=== PATIENT | male | born 1960 ===

== ENCOUNTER 2025-07-10 09:45 | Outpatient (REF) | payer MEDICARE, SELFPAY ==
--- OUTSIDE RECORDS SUMMARY | 2025-07-10 11:25 | XMS_ITS | Patient Health Record ---
Author Organization [facility] Address [address] [place] [address] Care Team Providers Care Consultant Intern Name Role Phone RANCHO DE JESUS MD Primary Care Provider DIEGO Waldron Unavailable [phone] Allergies No Known Allergies Reason For Referral No Information Medications Medication SIG (Take, Route, Fr equency, Duration) Notes Start Date End Date Status Atorvastatin Calcium Active Bactrim DS Active Macrobid Active Insulin Glargine Act alexus Basaglar KwikPen Act alexus metFORMIN HCl Active Aspirin Active Amoxicillin 500 MG 1 capsule Orally karla ry 8 hrs; Duration: 10 days 03/04/2021 Active Social History Tobacco Use: Social History Observation Description Date Details (start date - stop date) Never Smoker NA - NA Tobacco Use/Smoking Question Answer Notes Are you a: never smoker Alcohol Screen Question Answer Notes Did you have a drink contain ing alcohol in the past year? Yes How often did you have a dri nk containing alcohol in the past year? 2 to 4 times a month (2 points) How many drinks did you have on a typical day when you were drinking in the past year? 3 or 4 (1 point) How often did you have six o r more drinks on one occasion in the past year? 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 Problem Acute prostatitis (11145955) Acute prostatitis (N41.0) Active confirmed Problem Screening for malignant neoplasm of prostate (827745924) Encounter for screening for malignant neoplasm of prostate (Z12.5) Active confirmed Problem Elevated PSA (942707578) Elevated prostate specific antigen [PSA] (R97.20) Active confirmed Plan Of Treatment Pending Test Test Name Order Date Vit D25 [place] Total D 03/03/2021 Insurance Providers Payer Name Payer Address Payer Phone Subscriber Number Group Number Insured Name Patient Relationship to Insured Coverage Start Date Coverage End Date MEDICARE [address] [facility] EMELI MCLAU[place]HLIN [id number] Kiarra Issa Self - patient is the insured Medical (General) History Medical History History ICD Code pyelonephritis arthritis DM BPH anemia
--- OUTSIDE RECORDS SUMMARY | 2025-07-10 11:25 | XMS_ITS | Clinical Summary ---
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 Phone Unavailable Primary Care Provider Unavailabl e Encounters Date Type Department Care Team Description 05/31/2025 Telephone [facility] [address] [place], [place] [phone] Leodan Peralta MD 05/10/2025 Telephone [facility] [address] [place], [place] [phone] Leodan Peralta MD new pt appt from Last 3 Months Social History Tobacco Use Types Packs/Day Years Used Date Smoking Tobacco: Never Assessed Sex and Gender Information Value Date Recorded Sex Assigned at Male 03/14/2025 2:11 PM EDT Legal Sex Male 10:09 AM EDT Gender Identity Male 03/14/2025 2:11 PM EDT Sexual Orientation Straight 03/14/2025 2: 11 PM EDT Plan of Treatment Health Maintenance Due Date Last Done Comments CT Colonography 1959 Colonoscopy 1959 Colorectal Cancer Screening 1959 Depression Screening 1959 FIT DNA/Cologuard 1959 FIT 1959 FOBT 1959 Lipid Panel 1959 SDOH Screening 1959 Sigmoidoscopy 1959 Alcohol/Substance Use Screening 1971 Tobacco Screening 1971 Hepatitis C Screening 1977 Pneumococcal Vaccine: 50+ Years (2 of 2 - PPSV23) 10/12/2022 10/12/2021, 02/24/2010 Zoster Vaccines (2 of 3) 10/20/2022 08/25/2022 COVID-19 Vaccine (1 - 2023-2 5 season) 2025 Influenza Vaccine (#1) 2025 DTaP/Tdap/Td Vaccines (3 - T d or Tdap) 10/01/2031 10/01/2021, 07/29/2010 RSV Patients and Patients Aged 60 years or older (1 - 1-dose 75+ series) 2034 HIB Vaccines Aged Out No longer eligi ble based on patient's age to complete this topic HPV Vaccines Aged Out No longer eligi ble based on patient's age to complete this topic Hepatitis A Vaccines Aged Out No long er eligible based on patient's age to complete this topic Hepatitis B Vaccines Aged Out No long er eligible based on patient's age to complete this topic IPV Vaccines Aged Out No longer eligi ble based on patient's age to complete this topic Meningococcal B Vaccine Aged Out No l onger eligible based on patient's age to complete this topic Meningococcal Vaccine Aged Out No radha fransisco eligible based on patient's age to complete this topic RSV under 20 months Aged Out No longe r eligible based on patient's age to complete this topic Rotavirus Vaccines Aged Out No longer eligible based on patient's age to complete this topic Insurance [employer] MEDICARE REPLACEMENT [facility] STANDARD
--- OUTSIDE RECORDS SUMMARY | 2025-07-10 11:25 | XMS_ITS | Patient Health Record ---
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 Name Role Phone Kirk Villagran Unavailable [phone] Reason For Referral No Information Medications Medication SIG (Take, Route, Fr equency, Duration) Notes Start Date End Date Status metFORMIN HCl 1000 MG 1 tablet with meal s Orally Twice a day; Duration: 30 day(s) Active glipiZIDE 5 MG 1 tablet Orally Once a day; Duration: 30 day(s) Active Problems Problem Type SNOMED Code ICD Code Onset Dates Problem Status W/U Status Risk Notes Problem Screening for malignant neoplasm of colon (292157802) COLON CA SCREENING (V76.51) Active confirmed Plan Of Treatment No Information Insurance Providers Payer Name Payer Address Payer Phone Subscriber Number Group Number Insured Name Patient Relationship to Insured Coverage Start Date Coverage End Date [facility] [address] [place] [address] [id number] KINA MOLINA Self - patient is the insured Medical (General) History Medical History History ICD Code diabetes mallitus
--- OUTSIDE RECORDS SUMMARY | 2025-07-10 11:26 | XMS_ITS | Patient Health Record ---
Author Organization [facility] Address [address] [place] [address] Support Name Relationship Address Phone Kiarra Issa Guarantor Unknown [phone] Allergies No Known Allergies Reason For Referral No Information Medications Medication SIG (Take, Route, Frequency, Duration) Notes Start Date End Date Status Atorvastatin Calcium *Pick strength-form from Medispan for eRX* Active Macrobid *Pick strength-form from Medispan for eRX* Active Bactrim DS *Pick strength-form from Medispan for eRX* Active Basaglar KwikPen *Pick strength-form from Medispan for eRX* Active Insulin Glargine *Pick strength-form from Medispan for eRX* Active Aspirin *Pick strength-form from Medispan for eRX* Active metFORMIN HCl *Pick strength-form from Medispan for eRX* Active Amoxicillin 500 MG Capsule 1 capsule Orally every 8 hrs; Duration: 10 days 03/04/2021 Active Social History Social History Additional Details Category Social Info Options Details Migrated Social History Drugs/Alcohol: (Alcohol Screen): Points: 5, Interpretation: Positive Tobacco Use: (Tobacco Use/Smoking): Are you a:: never smoker Problems Problem Type SNOMED Code ICD Code Onset Dates Problem Status W/U Status Risk Notes Problem Acute prostatitis (34167691) Acute prostatitis (N41.0) Active confirmed Problem Screening for malignant neoplasm of prostate (228743054) Encounter for screening for malignant neoplasm of prostate (Z12.5) Active confirmed Problem Arterial thrombosis (09527196) 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
== END 2025-07-10 09:46 | disposition home or self-care (01) ==
LOC: HO.SH 09:45
PROVIDERS: Visit Provider Internal Medicine
DX: Z01.118 Encounter for examination of ears and hearing with other abnormal findings (principal); H90.6 Mixed conductive and sensorineural hearing loss, bilateral
CPT/HCPCS: 92557; 92567